=== PATIENT | male | born 1985 | race American Indian/Alaskan Native ===

== ENCOUNTER 2017-03-11 11:15 | Emergency (ER) | payer SELFPAY ==
[2017-03-11 12:15] LABS: Basophils % (Auto) 0.6 % (0.0-1.8); Eosinophils % (Auto) 0.8 % (0.0-4.3); Hematocrit 48.5 % (35.5-45.6); Hemoglobin 16.2 gm/dl (11.8-15.2); Mean Corpuscular HGB Conc 33 % (32-34); Mean Corpuscular Hemoglobin 31 pg (28-32); Mean Corpuscular Volume 93 fl (84-94); Platelet Count 175 K/mm3 (140-440); Red Blood Count 5.25 M/mm3 (3.65-5.03); Red Cell Distribution Width 13.6 % (13.2-15.2); White Blood Count 15.7 K/mm3 (4.5-11.0)
[2017-03-11 12:21] LABS: Anion Gap 17 mmol/L; Blood Urea Nitrogen 10 mg/dL (9-20); Calcium 9.6 mg/dL (8.4-10.2); Carbon Dioxide 27 mmol/L (22-30); Glucose 93 mg/dL (75-100); Potassium 4.5 mmol/L (3.6-5.0); Sodium 141 mmol/L (137-145)
[2017-03-11] MEDS ORDERED: DILAUDID IV ONE ×2 (14:54→20:29)
[2017-03-11] MEDS ORDERED: ZOFRAN IV ONE ×2 (14:54→20:29)
--- NOTE | 2017-03-11 14:56 | Emergency Department Report ---
ED Extremity Problem HPI - General Chief complaint: Extremity Injury, Lower Stated complaint: RT FOOT/THIGH BRUSING/PAIN/SWELLING Time Seen by Provider: 03/11/17 14:27 Source: patient Mode of arrival: Wheelchair Limitations: No Limitations - History of Present Illness MD Complaint: extremity pain, extremity swelling -: Gradual Location: lower extremity History of Same: No -: Yes arthralgia, No fever, No associated dyspnea, No associated chest pain Radiation: none Severity scale (0 -10): 3 Quality: aching Consistency: intermittent Improves with: nothing Worsens with: nothing Associated Symptoms: denies other symptoms. denies: chest pain, shortness of breath, fever, myalgias, arthralgias, rash, other - Related Data Previous Rx's Medication Instructions Recorded Last Taken Type HYDROcodone/APAP 10-325 [Wilkinson 1 each PO BID #12 tablet 03/11/17 Unknown Rx 10/325] Sulfamethoxazole/Trimethoprim 1 each PO BID #20 tablet 03/11/17 Unknown Rx [Bactrim DS TAB] Allergies Allergy/AdvReac Type Severity Reaction Status Date / Time No Known Allergies Allergy Unverified 03/11/17 11:33 ED Review of Systems ROS: Stated complaint: RT FOOT/THIGH BRUSING/PAIN/SWELLING Other details as noted in HPI Comment: All other systems reviewed and negative ED Past Medical Hx - Past Medical History Previous Medical History?: No - Surgical History Past Surgical History?: No - Social History Smoking Status: Current Every Day Smoker Substance Use Type: Alcohol, Marijuana - Medications Home Medications: Home Medications Medication Instructions Recorded Confirmed Last Taken Type HYDROcodone/APAP 10-325 [Wilkinson 1 each PO BID #12 tablet 03/11/17 Unknown Rx 10/325] Sulfamethoxazole/Trimethoprim 1 each PO BID #20 tablet 03/11/17 Unknown Rx [Bactrim DS TAB] ED Physical Exam - General Limitations: No Limitations General appearance: alert, in no apparent distress, in distress - Head Head exam: Present: atraumatic, normocephalic - Eye Eye exam: Present: normal appearance - ENT ENT exam: Present: mucous membranes moist - Neck Neck exam: Present: normal inspection - Respiratory Respiratory exam: Present: normal lung sounds bilaterally. Absent: respiratory distress - Cardiovascular Cardiovascular Exam: Present: regular rate, normal rhythm. Absent: systolic murmur, diastolic murmur, rubs, gallop - GI/Abdominal GI/Abdominal exam: Present: soft, normal bowel sounds - Rectal Rectal exam: Present: deferred - Extremities Exam Extremities exam: Present: normal inspection, tenderness, normal capillary refill, calf tenderness, other (erythema of the right foot.). Absent: pedal edema, joint swelling - Back Exam Back exam: Present: normal inspection - Neurological Exam Neurological exam: Present: alert, oriented X3 - Psychiatric Psychiatric exam: Present: normal affect, normal mood - Skin Skin exam: Present: warm, dry, intact, normal color. Absent: rash ED Course Vital Signs 03/11/17 03/11/17 11:25 15:15 Temperature 98.7 F Pulse Rate 103 H Respiratory 22 22 Rate Blood Pressure 130/88 O2 Sat by Pulse 100 Oximetry ED Medical Decision Making - Lab Data Result diagrams: 03/11/17 11:51 03/11/17 11:51 - Radiology Data Radiology results: report reviewed, image reviewed - Medical Decision Making patient doing much better after fluids and abx here in the ER. US doppler to rule out DVT was negative, he has no fever ,and will attempt an outpatient abx regimen on him,.if this fails he will be back March 13 for possible admission. Critical care attestation.: If time is entered above; I have spent that time in minutes in the direct care of this critically ill patient, excluding procedure time. ED Disposition Clinical Impression: Cellulitis Disposition: DC-01 TO HOME OR SELFCARE Is pt being admited?: No Does the pt Need Aspirin: No Condition: Good Instructions: Cellulitis (ED) Prescriptions: HYDROcodone/APAP 10-325 [Wilkinson 10/325] 1 each PO BID #12 tablet Sulfamethoxazole/Trimethoprim [Bactrim DS TAB] 1 each PO BID #20 tablet Referrals: PRIMARY CARE, [Primary Care Provider] - 3-5 Days Time of Disposition: 18:10
[2017-03-11 15:11] LABS: Bilirubin,Urine NEG (Negative); Blood,Urine NEG (Negative); Ketones,Urine NEG (Negative); Leukocyte Esterase,Urine NEG (Negative); Nitrite,Urine NEG (Negative); Protein,Urine <15 mg/dL mg/dL (Negative); WBC,Urine < 1.0 /HPF (0.0-6.0)
[2017-03-11] MEDS ORDERED: VANCOMYCIN/NS 1 GM/250 ML 1 GM/250 ML BAG IV ONE (18:03)
[2017-03-11] MEDS ORDERED: DILAUDID ONE (20:12)
[2017-03-11] MEDS ORDERED: ZOFRAN ONE (20:12)
[2017-03-11 21:04] VITALS: BP 119/63
== END 2017-03-11 20:30 | disposition home or self-care (01) ==
LOC: ED 11:15
DX: L03.115 Cellulitis of right lower limb (principal); F17.200 Nicotine dependence, unspecified, uncomplicated; F12.10 Cannabis abuse, uncomplicated
CPT/HCPCS: 36415; 80048; 81001; 85025; 93971; 96365; 96366; 96375; 96376; 99284; J1170; J2405; J3370